=== PATIENT | female | born 1975 | race Caucasian/White ===

== ENCOUNTER 2020-05-08 02:49 | Observation (INO) ==
[2020-05-08] MEDS ORDERED: Ondansetron 4 MG/2 ML VIAL IVP ONE ×2 (03:13→21:20)
[2020-05-08] MEDS: niCARdipine 20 MG/200 ML MLS IVC SCH ×3 (03:37→09:55)
[2020-05-08 03:43] LABS: Basophils # 0.1 K/mcL (0.0-0.2); Basophils % 0.9 %; Eosinophils # 0.3 K/mcL (0.0-0.6); Eosinophils % 3.8 %; Hematocrit 44.4 % (35.3-44.9); Hemoglobin 14.8 g/dL (11.5-15.4); Immature Granulocytes % 0.1 % (0-4); Lymphocytes # 2.9 K/mcL (0.6-4.6); Lymphocytes % 38.3 %; Mean Corpuscular HGB Conc 33.3 g/dL (31.6-35.5); Mean Corpuscular Volume 89.9 fL (83.0-100.0); Monocytes # 0.6 K/mcL (0.0-1.3); Monocytes % 7.9 %; Neutrophils # 3.7 K/mcL (1.6-8.9); Platelet Count 278 K/mcL (140-400); Red Blood Count 4.94 M/mcL (3.82-4.97); Red Cell Distribution Width 12.8 % (11.5-14.5); White Blood Count 7.6 K/mcL (4.3-11.1)
[2020-05-08 03:58] LABS: Alanine Aminotransferase 21 Units/L (7-52); Albumin 4.1 g/dL (3.5-5.7); Albumin/Globulin Ratio 1.3 (1.1-2.2); Alkaline Phosphatase 80 Units/L (34-104); Aspartate Amino Transferase 21 Units/L (13-39); BUN/Creatinine Ratio 23 (6-26); Bilirubin,Indirect 0.4 mg/dL (0.0-1.0); Bilirubin,Total 0.4 mg/dL (0.3-1.0); Blood Urea Nitrogen 14 mg/dL (6-20); Calcium 9.4 mg/dL (8.6-10.3); Carbon Dioxide 24 mEq/L (23-29); Chloride 106 mEq/L (98-107); Globulin 3.1 g/dL (2.4-3.5); Glucose 115 mg/dL (70-105); Osmolality,Calculated 285 (280-300); Potassium 3.9 mEq/L (3.5-5.1); Sodium 137 mEq/L (136-145); Total Protein 7.2 g/dL (6.4-8.9); Troponin I < 0.03 ng/mL (< 0.04); eGFR For African Americans > 60 (> 60); eGFR For Non-African Americans > 60 (> 60)
[2020-05-08 04:32] LABS: Bilirubin,Urine Negative (Negative); Blood,Urine Negative (Negative); Clarity,Urine Clear (Clear); Color,Urine Light-Yellow (Yellow); Glucose,Urine (UA) Normal (Normal); Ketones,Urine Negative (Negative); Leukocyte Esterase,Urine Negative (Negative); Mucus,Urine Few per lpf (None-Few); Nitrite,Urine Negative (Negative); PH,Urine 5.5 pH Units (5.0-8.0); Protein,Urine 50 mg/dL (Neg-Trace); RBC,Urine 0-3 per hpf (0-3); Specific Gravity,Urine 1.025 (1.010-1.025); Squamous Epithelial Cell,Urine Few per hpf (None-Few); Urobilinogen,Urine Normal (Normal); WBC,Urine 0-3 per hpf (0-3)
[2020-05-08 05:51] LABS: Lipase 21 Units/L (11-82)
[2020-05-08] MEDS ORDERED: Naloxone 0.4 MG/ML INJ IVP PRN (06:56)
[2020-05-08] MEDS ORDERED: Acetaminophen 325 MG TABLET PO PRN (07:16)
[2020-05-08] MEDS ORDERED: Perflutren Lipid Microsphere 1.3 ML in 0.9 % Sodium Chloride 8.7 ML IVP PRN (07:19)
[2020-05-08] MEDS ORDERED: Ibuprofen 800 MG TABLET PO ONE (07:51)
[2020-05-08] MEDS ORDERED: Nitroglycerin 0.4 MG TAB.SUBL SL PRN (08:25)
[2020-05-08 08:43] LABS: Estimated Average Glucose 103 mg/dl
[2020-05-08] MEDS ORDERED: Aspirin 325 MG TABLET PO ONE (08:52)
[2020-05-08 08:55] LABS: Chol/HDL Ratio 3.5 (0-4.9)
[2020-05-08] MEDS ORDERED: *HR* Heparin 5,000 UNIT/ML VIAL IVP ONE (08:55)
[2020-05-08] MEDS ORDERED: *HR* Heparin 5,000 UNIT/ML VIAL IVP PRN ×2 (08:55)
[2020-05-08] MEDS ORDERED: amLODIPine 5 MG TABLET PO SCH (09:00)
[2020-05-08] MEDS ORDERED: Heparin 25,000UNIT/250ML 1/2NS 25,000 UNIT/250 ML IV.SOLN IVC SCH (09:00)
[2020-05-08] MEDS ORDERED: carvediloL 6.25 MG TABLET PO SCH (09:00)
[2020-05-08 09:08] LABS: Thyroid Stimulating Hormone 4.818 mcIU/mL (0.340-5.600)
[2020-05-08 10:14] LABS: Hematocrit 47.2 % (35.3-44.9); Hemoglobin 15.6 g/dL (11.5-15.4); Mean Corpuscular HGB Conc 33.1 g/dL (31.6-35.5); Mean Corpuscular Volume 90.8 fL (83.0-100.0); Mean Platelet Volume 10.4 fL (9.4-12.4); Platelet Count 222 K/mcL (140-400); Red Cell Distribution Width 12.8 % (11.5-14.5); White Blood Count 6.8 K/mcL (4.3-11.1)
[2020-05-08 10:27] LABS: Heparin anti-factor XA UFH < 0.04 IU/mL (0.30-0.70)
[2020-05-08 10:28] LABS: Prothrombin Time 11.4 Seconds (9.4-12.1)
[2020-05-08] MEDS: carvediloL 6.25 MG TABLET PO SCH (16:32)
[2020-05-08] MEDS ORDERED: clonazePAM 1 MG TABLET PO PRN (17:22)
[2020-05-08] MEDS ORDERED: *HR* Heparin 5,000 UNIT/ML VIAL SQ SCH (18:00)
[2020-05-08] MEDS: *HR* Heparin 5,000 UNIT/ML VIAL SQ SCH (18:44)
[2020-05-08] MEDS: Ziprasidone 20 MG CAPSULE PO SCH (20:15)
[2020-05-08] MEDS ORDERED: rOPINIRole 1 MG TABLET PO SCH (21:00)
[2020-05-09] MEDS: *HR* Heparin 5,000 UNIT/ML VIAL SQ SCH ×2 (05:51→17:02)
[2020-05-09] MEDS ORDERED: Regadenoson 0.4 MG/5 ML SYRINGE IVP ONE (06:10)
[2020-05-09] MEDS ORDERED: lisinopriL 5 MG TABLET PO SCH (09:00)
[2020-05-09] MEDS ORDERED: lamoTRIgine 100 MG TABLET PO SCH (09:00)
[2020-05-09] MEDS ORDERED: Cholecalciferol (D-3) 1,000 UNIT (25MCG) TABLET PO SCH (09:00)
[2020-05-09] MEDS: carvediloL 6.25 MG TABLET PO SCH ×2 (09:27→17:02)
[2020-05-09] MEDS: Ziprasidone 20 MG CAPSULE PO SCH (09:27)
[2020-05-09 16:56] VITALS: BP 135/83
== END 2020-05-09 18:08 | disposition left against medical advice (07) ==
LOC: EMEROOARM 02:49 → CDU 02:49 → SUATTDRO 06:36 → CDU 09:57 → 2ANU 18:39
PROVIDERS: ADMIT Family Medicine; ATTEND Internal Medicine